=== PATIENT | male | born 1955 | race Caucasian/White ===

== ENCOUNTER 2018-12-06 08:00 | Emergency (ER) | payer BC, OTHER ==
--- NOTE | 2018-12-06 08:20 | EDM.PDOC ---
ED HPI GENERAL MEDICAL PROBLEM - General Chief Complaint: Upper Extremity Injury/Pain Stated Complaint: w.c. Time Seen by Provider: 12/06/18 08:13 - History of Present Illness INITIAL COMMENTS - FREE TEXT/NARRATIVE: HISTORY AND PHYSICAL: History of present illness: Patient is 63-year-old male presents status post fall this morning which he injured his right ribs and right shoulder he denies head or neck pain or trauma or other concern. Review of systems: As per history of present illness and below otherwise all systems reviewed and negative. Past medical history: As per history of present illness and as reviewed below otherwise noncontributory. Surgical history: As per history of present illness and as reviewed below otherwise noncontributory. Social history: No reported history of drug or alcohol abuse. Family history: As per history of present illness and as reviewed below otherwise noncontributory. Physical exam: HEENT: Atraumatic, normocephalic, pupils reactive, negative for conjunctival pallor or scleral icterus, mucous membranes moist, throat clear, neck supple, nontender, trachea midline. Lungs: Clear to auscultation, breath sounds equal bilaterally, chest right rib tenderness is nonlocalized no crepitation. Heart: S1S2, regular, negative for clicks, rubs, or JVD. Abdomen: Soft, nondistended, nontender. Negative for masses or hepatosplenomegaly. Negative for costovertebral tenderness. Pelvis: Stable nontender. Genitourinary: Deferred. Rectal: Deferred. Extremities: Tenderness noted to the right shoulder and proximal humerus there is no gross deformity is limited range of motion secondary to pain CMS neurovascular exam is unremarkable Neuro: Awake, alert, oriented. Cranial nerves II through XII unremarkable. Cerebellum unremarkable. Motor and sensory unremarkable throughout. Exam nonfocal. Diagnostics: X-ray right shoulder right humerus right ribs with chest Therapeutics: Toradol 30 mg IV Impression: #1 observation status post fall #2 right upper extremity/shoulder injury #3 right rib injury Definitive disposition and diagnosis as appropriate pending reevaluation and review of above. - Related Data Allergies Allergy/AdvReac Type Severity Reaction Status Date / Time Penicillins Allergy Cannot Verified 12/06/18 08:12 Remember Home Meds: Home Meds . [No Known Home Meds] 12/06/18 [History] Past Medical History Other HEENT History: wears glasses, has lower dental partial (removable) Cardiovascular History: Reports: None Respiratory History: Reports: None Gastrointestinal History: Reports: None Genitourinary History: Reports: None Musculoskeletal History: Reports: Fracture Other Musculoskeletal History: left wrist Neurological History: Reports: Other (See Below) Other Neuro History: has a twitch , right eye (Adithya-facial Spasms) Psychiatric History: Reports: None Endocrine/Metabolic History: Reports: Obesity/BMI 30+ Hematologic History: Reports: None Immunologic History: Reports: None Oncologic (Cancer) History: Reports: None Dermatologic History: Reports: Other (See Below) Other Dermatologic History: white patches on skin - Past Surgical History Musculoskeletal Surgical History: Reports: Other (See Below) Social & Family History - Family History Family Medical History: Noncontributory Review of Systems - Review of Systems Review Of Systems: ROS reveals no pertinent complaints other than HPI. ED EXAM, GENERAL - Physical Exam Exam: See Below (See dictation) Course - Vital Signs Last Recorded V/S: Last Vital Signs Temp 36.3 C 12/06/18 08:17 Pulse 64 12/06/18 08:17 Resp 16 12/06/18 08:17 BP 161/84 H 12/06/18 08:17 Pulse Ox 98 12/06/18 08:17 - Orders/Labs/Meds Meds: Medications Discontinued Medications Generic Name Dose Route Start Last Admin Trade Name Kishor PRN Reason Stop Dose Admin Ketorolac Tromethamine 30 mg 12/06/18 08:24 12/06/18 08:54 Toradol IM 12/06/18 08:25 30 mg ONETIME ONE Administration Departure - Departure Time of Disposition: 08:20 Disposition: Home, Self-Care 01 Condition: Good Clinical Impression: Rib injury, Shoulder injury - Discharge Information Referrals: PCP,Unknown [Primary Care Provider] - Forms: ED Department Discharge Additional Instructions: The following information is given to patients seen in the emergency department who are being discharged to home. This information is to outline your options for follow-up care. We provide all patients seen in our emergency department with a follow-up referral. The need for follow-up, as well as the timing and circumstances, are variable depending upon the specifics of your emergency department visit. If you don't have a primary care physician on staff, we will provide you with a referral. We always advise you to contact your personal physician following an emergency department visit to inform them of the circumstance of the visit and for follow-up with them and/or the need for any referrals to a consulting specialist. The emergency department will also refer you to a specialist when appropriate. This referral assures that you have the opportunity for followup care with a specialist. All of these measure are taken in an effort to provide you with optimal care, which includes your followup. Under all circumstances we always encourage you to contact your private physician who remains a resource for coordinating your care. When calling for followup care, please make the office aware that this follow-up is from your recent emergency room visit. If for any reason you are refused follow-up, please contact the [facility] emergency department at and asked to speak to the emergency department charge nurse. [facility] Professional [address], [address] [place] [address] Sling as directed tramadol as prescribed follow-up occupational medicine/ orthopedic surgery return as needed as discussed
[2018-12-06] MEDS ORDERED: Ketorolac 30 MG/ML SDV IM ONE (08:24)
--- NOTE | 2018-12-06 08:53 | CR ---
EXAMINATION: Right shoulder and right humerus HISTORY: Pain COMPARISON: None TECHNIQUE: 3 views of the right shoulder and 2 views of the right humerus FINDINGS: No acute osseous abnormality or fracture is identified. Moderate acromioclavicular osteoarthritic changes with small inferior osteophytes. Glenohumeral joint space is grossly preserved. No focal soft tissue swelling. Elbow joint spaces appear preserved. IMPRESSION: No acute osseous abnormality identified.
--- NOTE | 2018-12-06 08:56 | CR ---
EXAMINATION: PA chest and right RIBS HISTORY: Trauma. FINDINGS: The trachea is midline. The cardiomediastinal silhouette is within normal limits. No pulmonary infiltrates, effusions or pneumothorax. Osseous structures appear unremarkable. No displaced rib fracture identified. IMPRESSION: No acute cardiopulmonary process.
[2018-12-06 10:49] VITALS: BP 144/83
== END 2018-12-06 09:56 | disposition home or self-care (01) ==
LOC: MW.ED 08:00
DX: S49.91XA Unspecified injury of right shoulder and upper arm, initial encounter (principal); S29.9XXA Unspecified injury of thorax, initial encounter; Z88.0 Allergy status to penicillin; W18.30XA Fall on same level, unspecified, initial encounter
CPT/HCPCS: 71101; 73030; 73060; 96372; 99283; J1885

== ENCOUNTER 2020-04-26 17:12 | Emergency (ER) | payer BC, OTHER ==
[2020-04-26 17:31] VITALS: BP 151/79; PULSE 90
[2020-04-26] MEDS ORDERED: Sodium Chloride 0.9% 10 ML Syringe FLUSH PRN (17:59)
[2020-04-26] MEDS ORDERED: Sodium Chloride 0.9% 2.5 ML Syringe FLUSH PRN (17:59)
--- NOTE | 2020-04-26 18:07 | EDM.PDOC ---
ED HPI GENERAL MEDICAL PROBLEM - General Chief Complaint: Lower Extremity Injury/Pain Stated Complaint: FOOT INJURY Time Seen by Provider: 04/26/20 18:00 Source of Information: Reports: Patient History Limitations: Reports: No Limitations - History of Present Illness INITIAL COMMENTS - FREE TEXT/NARRATIVE: HISTORY AND PHYSICAL: History of present illness: Patient is a 65-year-old male who presents to the emergency room with complaints of left lower extremity redness, swelling and fevers. He states last evening he started to develop a fever of 103 with chills. This morning he woke up and the fevers had resolved. He noticed redness and soft tissue swelling of the left lower ankle and foot. He denies any injury, trauma or falls. He denies any numbness, tingling, weakness or saddle paresthesia. He is able to ambulate without any difficulty or deficits. Patient denies any fever, chills, headache, change in vision, syncope or near syncope. Denies any chest pain, back pain, shortness of breath or cough. Denies any GI or symptoms. Patient has been eating and drinking appropriately. Denies any recent travel, insect bites or tick bites. No other lesions noted on skin elsewhere. *Patient does note that he had and infection of the left lower extremity over 40 years ago due to a worm larva Review of systems: As per history of present illness and below otherwise all systems reviewed and negative. Past medical history: As per history of present illness and as reviewed below otherwise noncontributory. Surgical history: As per history of present illness and as reviewed below otherwise noncontributory. Social history: See social history for further information Family history: As per history of present illness and as reviewed below otherwise nonc ontributory. Physical exam: General: Well developed and well nourished 65-year-old male. Alert and oriented. Nontoxic-appearing and in no acute distress. HEENT: Atraumatic, normocephalic, pupils equal and reactive bilaterally, negative for conjunctival pallor or scleral icterus, mucous membranes moist, TMs normal bilaterally, throat clear, neck supple, nontender, trachea midline. No drooling or trismus noted. No meningeal signs. No hot potato voice noted. Lungs: Clear to auscultation, breath sounds equal bilaterally, chest nontender. Heart: S1S2, regular rate and rhythm without overt murmur Abdomen: Soft, nondistended, nontender. Negative for masses or hepatosplenomegaly. Negative for costovertebral tenderness. Skin: Erythema and warm to touch area to the left distal osullivan into the ankle and foot. Otherwise remaining skin is intact, warm, dry. No lesions or rashes noted. Hematologic: No petechiae or purpra. Mucosa appropriate color and normal nail bed color and refill. Extremities: Atraumatic, moves all extremities per self without difficulty or deficits, negative for cords or calf pain. Mild swelling of the cellulitic area. He does have strong pedal and pretibial pulse. Capillary refill less than 3 seconds. + CMS. Neurovascular unremarkable. Neuro: Awake, alert, oriented. Cranial nerves II through XII unremarkable. Cerebellum unremarkable. Motor and sensory unremarkable throughout. Exam nonfocal. Notes: No concern for DVT. Clinically he has a cellulitis of the left lower extremity. We will do basic labs as he may require inpatient IV antibiotics. He is currently afebrile and his vital signs are stable. Patient's lab work is unremarkable. We discussed outpatient versus inpatient therapy. He states he would like to be discharged home with outpatient oral antibiotics. 1 tablet of Bactrim DS was given here and a prescription was sent to his pharmacy. The area was outlined with surgical marker. We discussed in great length symptoms he needed to continue to monitor for and what would prompt him to return to the emergency room. We discussed the need for follow-up and reevaluation with his primary care provider. Medication and supportive care measures were reviewed and discussed. Awaiting x-ray report. X-ray shows focal soft tissue swelling overlying the medial aspect of the ankle. No soft tissue gas. No focal osteopenia or irregularity of the underlying medial malleolus to suggest osteomyelitis. No fracture is noted. Patient did sign out AGAINST MEDICAL ADVICE as we are waiting for the x-ray report (he didn't want to wait for results regardless of education) although we had discussed the outpatient therapy in detail. Diagnostics: CBC, CMP, Lactate, BC x 2, Ankle x-ray Therapeutics: Bactrim DS Prescription: Bactrim DS Impression: Cellulitis, left lower extremity Plan: 1. Keep the area clean and dry. Continue to monitor for signs of improvement. Continue to monitor the surgical marker site, as we discussed if the redness should extend outside that margin you need to return to the emergency room for IV antibiotics and possible admission. 2. Tylenol and/or ibuprofen as needed for pain management. 3. Please follow-up with your primary care provider in the next 1-2 days. Return to the ED as needed and as discussed. If your symptoms should worsen, new symptoms develop or any of the signs and symptoms we discussed should arise please return to the emergency room or call 911 (if needed). Definitive disposition and diagnosis as appropriate pending reevaluation and review of above. - Related Data Allergies Allergy/AdvReac Type Severity Reaction Status Date / Time Penicillins Allergy Cannot Verified 04/26/20 17:30 Remember Home Meds: Home Meds Sulfamethoxazole/Trimethoprim [Bactrim Ds Tablet] 1 each PO BID 10 Days #20 tablet 04/26/20 [Rx] Past Medical History Other HEENT History: wears glasses, has lower dental partial (removable) Cardiovascular History: Reports: None Respiratory History: Reports: None Gastrointestinal History: Reports: None Genitourinary History: Reports: None Musculoskeletal History: Reports: Fracture Other Musculoskeletal History: left wrist Neurological History: Reports: Other (See Below) Other Neuro History: has a twitch , right eye (Adithya-facial Spasms) Psychiatric History: Reports: None Endocrine/Metabolic History: Reports: Obesity/BMI 30+, Other (See Below) Other Endocrine/Metabolic History: elevated HBa!C but not on medication Hematologic History: Reports: None Immunologic History: Reports: None Oncologic (Cancer) History: Reports: None Dermatologic History: Reports: Other (See Below) Other Dermatologic History: white patches on skin - Infectious Disease History Infectious Disease History: Reports: Measles - Past Surgical History Head Surgeries/Procedures: Reports: None HEENT Surgical History: Reports: None Endocrine Surgical History: Reports: None Neurological Surgical History: Reports: None Musculoskeletal Surgical History: Reports: Shoulder Surgery, Other (See Below) Other Musculoskeletal Surgeries/Procedures:: L wrist Social & Family History - Family History Family Medical History: Noncontributory - Tobacco Use Smoking Status *Q: Never Smoker Second Hand Smoke Exposure: No - Caffeine Use Caffeine Use: Reports: Coffee - Recreational Drug Use Recreational Drug Use: No Review of Systems - Review of Systems Review Of Systems: Comprehensive ROS is negative, except as noted in HPI. ED EXAM, GENERAL - Physical Exam Exam: See Below (See dictation) Course - Vital Signs Last Recorded V/S: Last Vital Signs Temp 97.3 F 04/26/20 17:24 Pulse 90 04/26/20 17:24 Resp 20 04/26/20 17:24 BP 151/79 H 04/26/20 17:24 Pulse Ox 96 04/26/20 17:24 - Orders/Labs/Meds Orders: Active Orders 24 hr Category Date Time Status CULTURE BLOOD [BC] Stat Lab 04/26/20 18:24 Received Sodium Chloride 0.9% [Saline Flush] Med 04/26/20 17:59 Active 10 ml FLUSH ASDIRECTED PRN Sodium Chloride 0.9% [Saline Flush] Med 04/26/20 17:59 Active 2.5 ml FLUSH ASDIRECTED PRN Blood Culture x2 Reflex Set [OM.PC] Stat Oth 04/26/20 17:59 Ordered Saline Lock Insert [OM.PC] Stat Oth 04/26/20 17:59 Ordered Medication Orders Sodium Chloride (Saline Flush) 10 ml FLUSH ASDIRECTED PRN PRN Reason: Keep Vein Open Sodium Chloride (Saline Flush) 2.5 ml FLUSH ASDIRECTED PRN PRN Reason: Keep Vein Open Labs: Laboratory Tests 04/26/20 04/26/20 04/26/20 Range/Units 18:05 18:05 18:05 WBC 5.72 (4.0-11.0) K/uL RBC 4.81 (4.50-5.90) M/uL Hgb 13.8 (13.0-17.0) g/dL Hct 42.3 (38.0-50.0) % MCV 87.9 (80.0-98.0) fL MCH 28.7 (27.0-32.0) pg MCHC 32.6 (31.0-37.0) g/dL RDW Std Deviation 42.7 (28.0-62.0) fl RDW Coeff of Uday 13 (11.0-15.0) % Plt Count 153 (150-400) K/uL MPV 10.10 (7.40-12.00) fL Neut % (Auto) 77.0 (48.0-80.0) % Lymph % (Auto) 14.0 L (16.0-40.0) % Gregory % (Auto) 8.2 (0.0-15.0) % Eos % (Auto) 0.5 (0.0-7.0) % Baso % (Auto) 0.3 (0.0-1.5) % Neut # (Auto) 4.4 (1.4-5.7) K/uL Lymph # (Auto) 0.8 (0.6-2.4) K/uL Gregory # (Auto) 0.5 (0.0-0.8) K/uL Eos # (Auto) 0.0 (0.0-0.7) K/uL Baso # (Auto) 0.0 (0.0-0.1) K/uL Nucleated RBC % 0.0 /100WBC Nucleated RBCs # 0 K/uL Lactate 1.1 (0.20-2.00) mmol/L Sodium 135 L (136-148) mmol/L Potassium 4.1 (3.5-5.1) mmol/L Chloride 102 (98-107) mmol/L Carbon Dioxide 23.5 (21.0-32.0) mmol/L BUN 20 H (7.0-18.0) mg/dL Creatinine 1.2 (0.8-1.3) mg/dL Est Cr Clr Drug Dosing 66.24 mL/min Estimated GFR (MDRD) > 60.0 ml/min Glucose 173 H (74-106) mg/dL Calcium 8.3 L (8.5-10.1) mg/dL Total Bilirubin 0.6 (0.2-1.0) mg/dL AST 24 (15-37) IU/L ALT 28 (14-63) IU/L Alkaline Phosphatase 79 (46-116) U/L Total Protein 7.6 (6.4-8.2) g/dL Albumin 3.7 (3.4-5.0) g/dL Globulin 3.9 (2.6-4.0) g/dL Albumin/Globulin Ratio 0.9 (0.9-1.6) Meds: Medications Generic Name Dose Route Start Last Admin Trade Name Freq PRN Reason Stop Dose Admin Sodium Chloride 10 ml 04/26/20 17:59 Saline Flush FLUSH ASDIRECTED PRN Keep Vein Open Sodium Chloride 2.5 ml 04/26/20 17:59 Saline Flush FLUSH ASDIRECTED PRN Keep Vein Open Discontinued Medications Generic Name Dose Route Start Last Admin Trade Name Kishor PRN Reason Stop Dose Admin Trimethoprim/Sulfamethoxazole 1 tab 04/26/20 18:33 04/26/20 19:10 Septra Ds PO 04/26/20 18:34 1 tab ONETIME ONE Administration Departure - Departure Time of Disposition: 19:51 Disposition: Against Medical Advice 07 Clinical Impression: Cellulitis Qualifiers: Site of cellulitis: extremity Site of cellulitis of extremity: lower extremity Laterality: left Qualified Code(s): L03.116 - Cellulitis of left lower limb - Discharge Information Prescriptions: Sulfamethoxazole/Trimethoprim [Bactrim Ds Tablet] 1 each PO BID 10 Days #20 tablet Instructions: Cellulitis, Adult, [id number] Referrals: PCP,None [Primary Care Provider] - Forms: ED Department Discharge Additional Instructions: The following information is given to patients seen in the emergency department who are being discharged to home. This information is to outline your options for follow-up care. We provide all patients seen in our emergency department with a follow-up referral. The need for follow-up, as well as the timing and circumstances, are variable depending upon the specifics of your emergency department visit. If you don't have a primary care physician on staff, we will provide you with a referral. We always advise you to contact your personal physician following an emergency department visit to inform them of the circumstance of the visit and for follow-up with them and/or the need for any referrals to a consulting specialist. The emergency department will also refer you to a specialist when appropriate. This referral assures that you have the opportunity for follow-up care with a specialist. All of these measure are taken in an effort to provide you with optimal care, which includes your follow-up. Under all circumstances we always encourage you to contact your private physician who remains a resource for coordinating your care. When calling for follow-up care, please make the office aware that this follow-up is from your recent emergency room visit. If for any reason you are refused follow-up, please contact the [facility] Emergency Department at and asked to speak to the emergency department charge nurse. [facility] [address] [place] [id number] [facility] [address] [place] [address] Thank you for choosing the [facility] emergency department in [place] for your medical needs today. It was a pleasure caring for you. Today you were seen in the emergency department for soft tissue infection of the left lower extremity. 1. Keep the area clean and dry. Continue to monitor for signs of improvement. Continue to monitor the surgical marker site, as we discussed if the redness should extend outside that margin you need to return to the emergency room for IV antibiotics and possible admission. 2. Tylenol and/or ibuprofen as needed for pain management. 3. Please follow-up with your primary care provider in the next 1-2 days. Return to the ED as needed and as discussed. If your symptoms should worsen, new symptoms develop or any of the signs and symptoms we discussed should arise please return to the emergency room or call 911 (if needed). Sepsis Event Note (ED) - Evaluation Sepsis Screening Result: No Definite Risk - Focused Exam Vital Signs: Vital Signs Temp Pulse Resp BP Pulse Ox 04/26/20 17:24 97.3 F 90 20 151/79 H 96 - My Orders Last 24 Hours: My Active Orders 04/26/20 17:59 Sodium Chloride 0.9% [Saline Flush] 10 ml FLUSH ASDIRECTED PRN Sodium Chloride 0.9% [Saline Flush] 2.5 ml FLUSH ASDIRECTED PRN Blood Culture x2 Reflex Set [OM.PC] Stat Saline Lock Insert [OM.PC] Stat 04/26/20 18:24 CULTURE BLOOD [BC] Stat - Assessment/Plan Last 24 Hours: My Active Orders 04/26/20 17:59 Sodium Chloride 0.9% [Saline Flush] 10 ml FLUSH ASDIRECTED PRN Sodium Chloride 0.9% [Saline Flush] 2.5 ml FLUSH ASDIRECTED PRN Blood Culture x2 Reflex Set [OM.PC] Stat Saline Lock Insert [OM.PC] Stat 04/26/20 18:24 CULTURE BLOOD [BC] Stat
[2020-04-26] MEDS ORDERED: Sulfamethoxazole/Trimethoprim 800-160 MG Tab PO ONE (18:33)
[2020-04-26 18:37] LABS: BLOOD UREA NITROGEN,BUN 20 mg/dL (7.0-18.0); CARBON DIOXIDE,CO2 23.5 mmol/L (21.0-32.0); CHLORIDE,CL 102 mmol/L (98-107); GLUCOSE RANDOM 173 mg/dL (74-106); POTASSIUM,K 4.1 mmol/L (3.5-5.1); SODIUM,NA 135 mmol/L (136-148)
--- NOTE | 2020-04-26 19:28 | CR ---
INDICATION: Cellulitis TECHNIQUE: Left ankle four views COMPARISON: None FINDINGS AND IMPRESSION: There is focal soft tissue swelling overlying the medial aspect of the ankle. No soft tissue gas. No focal osteopenia or cortical irregularity of the underlying medial malleolus to suggest acute osteomyelitis. No fracture. Normal alignment. The ankle mortise is maintained. Dictated by Samantha Hirsch MD @ 04/26/2020 7:26:19 PM Dictated by: Samantha Hirsch MD @ 04/26/2020 19:26:22 (Electronically Signed)
== END 2020-04-26 19:29 | disposition left against medical advice (07) ==
LOC: MW.ED 17:12
DX: L03.116 Cellulitis of left lower limb (principal); E66.9 Obesity, unspecified; Z68.42 Body mass index [BMI] 45.0-49.9, adult; Z88.0 Allergy status to penicillin
CPT/HCPCS: 36415; 73610; 80053; 83605; 85025; 87040; 99283; A9270

== ENCOUNTER 2023-08-20 15:22 | Emergency (ER) | payer BC ==
[2023-08-20 17:45] VITALS: BP 138/76; PULSE 89
== END 2023-08-20 18:49 | disposition home or self-care (01) ==
LOC: MW.ED 15:22
DX: M79.671 Pain in right foot (principal); E66.9 Obesity, unspecified; Z68.37 Body mass index [BMI] 37.0-37.9, adult; Z88.0 Allergy status to penicillin
CPT/HCPCS: 73630-26-RT; 73630-RT; 99282; 99283